=== PATIENT | female | born 1965 | race Two or more races ===

== ENCOUNTER 2023-09-17 07:45 | Inpatient (IN) | payer OTHER ==
[~2023-09-17] VITALS: Ht 157.5 cm; Wt 74.8 kg
[2023-09-17] MEDS ORDERED: CLARITIN10 M1 PO (10:04)
[2023-09-17] MEDS ORDERED: PROAIR RESPICL90 MCG IH (10:04)
[2023-09-17] MEDS ORDERED: PEPCID AC20 MG PO (10:04)
[2023-09-17] MEDS ORDERED: FLONASE16 GM (10:12)
[2023-09-17 10:45] LABS: HEMATOCRIT 40.1 % (36.0-45.00); HEMOGLOBIN 13.4 g/dL (12.0-15.00); MEAN CORPUSCULAR HEMOGLOBIN 29.8 pg (27.00-32.0); MEAN CORPUSCULAR HGB CONC 33.5 g/dl (32.0-36.0); PLATELET COUNT 270 K/uL (150-450); RED CELL DISTRIBUTION WIDTH 15.3 % (11.5-14.5)
[2023-09-17 10:54] LABS: PH,URINE 5.5 (5.0-8.0); URINE APPEARANCE Cloudy; URINE BILIRRUBIN Negative (NEGATIVE); URINE BLOOD Trace; URINE COLOR Yellow; URINE GLUCOSE Negative (NEGATIVE); URINE LEUKOCYTE Large; URINE NITRATE Negative; URINE PROTEIN Negative (NEGATIVE); URINE UROBILINOGEN 0.2 E.U./dl
[2023-09-17 10:58] LABS: URINE BACTERIA 617.3 uL (0.0-1933); URINE WBC 613.3 uL (0.0-23.2)
[2023-09-17 11:15] LABS: INR 0.96; PROTHROMBIN TIME 10.1 SECONDS (9.0-11.5)
[2023-09-17 11:39] LABS: ALBUMIN 3.6 gm/dL (3.4-5.0); BILIRUBIN TOTAL 0.4 mg/dL (0.3-1.2); CALCIUM 9.4 mg/dL (8.5-10.1); CREATININE SERUM 0.77 mg/dL (0.55-1.02); GFR 77.54; POTASSIUM 4.38 mEq/L (3.5-5.1); TOTAL PROTEIN 7.6 gm/dL (6.4-8.2)
[2023-09-27] MEDS ORDERED: ENOXAPARIN SODIUM 40 MG/0.4 ML SYRINGE SUBCUTANEO ONE ×2 (07:03→07:30)
[2023-09-27] MEDS ORDERED: CEFAZOLIN SODIUM 1,000 MG VIAL ONE (07:03)
[2023-09-27] MEDS ORDERED: CEFAZOLIN SODIUM 1,000 MG VIAL IV ONE (07:30)
[2023-09-27] MEDS ORDERED: HEPARIN SODIUM,PORCINE 500 UNITS/5 ML VIAL IV ONE (07:47)
[2023-09-27] MEDS ORDERED: HEPARIN SODIUM,PORCINE 5,000 UNITS/ML VIAL ONE (07:51)
[2023-09-27] MEDS ORDERED: HEPARIN SODIUM,PORCINE 5,000 UNITS/ML VIAL IV ONE (09:00)
[2023-09-27] MEDS ORDERED: GENTAMICIN SULFATE 40 MG/ML VIAL ONE (09:17)
[2023-09-27] MEDS ORDERED: SUGAMMADEX SODIUM 200 MG/2 ML VIAL IV ONE ×2 (10:16→10:30)
[2023-09-27] MEDS ORDERED: DEXTROSE 5 %-0.45 % SOD CHLORD 1,000 ML IV SCH (11:10)
[2023-09-27] MEDS ORDERED: ONDANSETRON HCL 2 MG/ML VIAL IV PRN (11:15)
[2023-09-27] MEDS ORDERED: OxyCODONE HCL/APAP UD (PERCOCET) PO PRN (11:15)
[2023-09-27] MEDS ORDERED: ONDANSETRON HCL 2 MG/ML VIAL ONE (12:15)
[2023-09-27] MEDS ORDERED: SIMETHICONE 125 MG CAPSULE PO SCH (13:00)
[2023-09-27] MEDS ORDERED: GENTAMICIN SULFATE 40 MG/ML VIAL IV SCH (17:00)
[2023-09-27] MEDS ORDERED: DOCUSATE SODIUM 100MG CAP PO SCH (17:00)
[2023-09-27] MEDS ORDERED: FAMOtidine 20 MG TABLET PO SCH (17:00)
[2023-09-28] MEDS ORDERED: MORPHINE SULFATE 2 MG/ML CARTRIDGE IV PRN ×2 (00:45→09:30)
[2023-09-28 08:17] LABS: HEMOGLOBIN 12.2 g/dL (12.0-15.00); MEAN CELL VOLUME 88.7 fL (80.00-100.00); MEAN CORPUSCULAR HEMOGLOBIN 30.1 pg (27.00-32.0); PLATELET COUNT 232 K/uL (150-450); RED BLOOD COUNT 4.05 M/uL (4.00-6.00); RED CELL DISTRIBUTION WIDTH 14.7 % (11.5-14.5)
[2023-09-28 08:54] LABS: CALCIUM 8.5 mg/dL (8.5-10.1); CREATININE SERUM 0.93 mg/dL (0.55-1.02); GFR 62.36; POTASSIUM 4.41 mEq/L (3.5-5.1)
== END 2023-09-28 14:49 | disposition home or self-care (01) | DRG 661 ==
LOC: O/R 09-27 05:37 → SURH 09-27 07:00
PROVIDERS: ADMIT Urology; ATTEND Urology
PROC: 0TT04ZZ Resection of Right Kidney, Percutaneous Endoscopic Approach (ICD-10-PCS; principal; 2023-09-27 07:00)
DX: N13.39 Other hydronephrosis (principal); Z20.822 Contact with and (suspected) exposure to COVID-19